=== PATIENT | female | born 1990 | race Caucasian/White ===

== ENCOUNTER 2023-03-06 13:09 | Emergency (ER) | payer OTHER ==
[~2023-03-06] VITALS: Ht 165.1 cm; Wt 63.5 kg
--- NOTE | 2023-03-06 13:11 | ER.PDOC ---
General Chief Complaint: Requesting Medical Care Stated Complaint: GENERAL TRAVEL OUT OF US: No Time seen by MD: 13:11 Source: patient History of Present Illness Initial Comments chest feels tight after saw dust exposure today. Had a bag of the dust and was not wearing respiratior Yesterday inhaled some lead pain sandings. Feels odd in chest Not painful Has asthma and has been using proventil. Severity: mild Allergies: Coded Allergies: No Known Drug Allergies (Verified Allergy, Unknown, 03/06/23) Past Medical History Medical History: asthma Surgical History: no surgical history Family History Significant Family History: no pertinent family hx Social History Smoking: non-smoker Reviewed Nursing Reviewed: Vital Signs, Abn. Noted, Nursing Assessment Review of Systems Constitutional: no symptoms reported EENTM: no symptoms reported Respiratory: see HPI Cardiovascular: no symptoms reported Gastrointestinal: no symptoms reported Genitourinary: no symptoms reported Musculoskeletal: no symptoms reported Skin: no symptoms reported Psychiatric/Neurological: no symptoms reported Hematologic/Lymphatic: no symptoms reported Immunological/Allergic: no symptoms reported All Other Systems: Reviewed and Negative Physical Exam General Appearance: No Apparent Distress, WD/WN, Anxious EENT: eyes nml inspection, pharynx nml Neck: Non-Tender Respiratory: chest non-tender, lungs clear, normal breath sounds, no respiratory distress CVS: reg rate & rhythm Gastrointestinal: Normal Bowel Sounds Rectal: Deferred Back: Normal Inspection Extremities: Normal Range of Motion Neurologic/Psychiatric: mine supervisor II-XII NML as Tested Skin: Normal Color Lymphatic: No Adenopathy Results/Orders Results/Orders Orders - FARSHAD PARK MD Xr Chest 1v (03/06/23 13:27) Vital Signs Date Time Temp Pulse Resp B/P (MAP) Pulse Ox O2 Delivery O2 Flow Rate FiO2 03/06/23 13:15 98.0 68 18 03/06/23 13:15 98.0 68 18 127/81 (96) 99 Room Air* 0 21 03/06/23 13:15 98.0 68 18 99 ER DEPART Departure Time of Disposition: 13:38 Disposition: 01 HOME / SELF CARE / HOMELESS Impression: Primary Impression: Anxiety Condition: Stable Referrals: PCP,UNKNOWN (PCP) PRIMARY CARE PROVIDER Comments reassurance continue inhaler f/u if wheezing of pain Duration or Time Spent with Pa: 10 FARSHAD PARK MD March 06, 2023 13:11
[2023-03-06 13:15] VITALS: BP 127/81
--- NOTE | 2023-03-06 13:58 | DIREP ---
PROCEDURE:CHEST 1 VIEW COMPARISON:None. INDICATIONS:DUST INHALATION FINDINGS: LUNGS/PLEURA:No significant pulmonary parenchymal abnormalities. No effusions. No pneumothorax. VASCULATURE:Normal. Unremarkable pulmonary vasculature. CARDIAC:Normal. No cardiac silhouette abnormality or cardiomegaly. MEDIASTINUM:Normal. No visible mass or adenopathy. BONES:Normal. No fracture or visible bony lesion. OTHER:Negative. CONCLUSION:Normal examination. Dictated by: Andrei Leung DO on 03/06/2023 at 01:56 PM
== END 2023-03-06 13:45 | disposition home or self-care (01) ==
LOC: ER 13:09
DX: F41.9 Anxiety disorder, unspecified (principal); J45.909 Unspecified asthma, uncomplicated
CPT/HCPCS: 71045; 99283